=== PATIENT | female | born 1960 | race Caucasian/White ===

== ENCOUNTER → 2024-11-15 | Outpatient (CLI) | payer BC ==
[2024-11-15 10:24] VITALS: TEMP 98.3
[2024-11-15 11:49] VITALS: BP 118/80; O2SAT 98
== END ==
LOC: M WHCPRO 10:21
PROVIDERS: ATTEND Nurse Practitioner Family
DX: R92.8 Other abnormal and inconclusive findings on diagnostic imaging of breast (principal); N63.21 Unspecified lump in the left breast, upper outer quadrant; N60.12 Diffuse cystic mastopathy of left breast; D05.92 Unspecified type of carcinoma in situ of left breast

== ENCOUNTER → 2025-02-22 | Outpatient (RCR) | payer BC ==
[~2025-02-22] MED LIST: AMLO1TAB25 PO; ANAS1TAB2 PO; ATEN50TA2 PO; CITA20TA6 PO; OMEP40CA4 PO; PRAV40TA85 PO
== END ==
LOC: M ONCR 02-07 11:12
PROVIDERS: ATTEND General Practice
DX: Z51.0 Encounter for antineoplastic radiation therapy (principal); C50.112 Malignant neoplasm of central portion of left female breast

== ENCOUNTER 2025-03-16 10:36 | Outpatient (RCR) | payer BC | END 2025-03-25 | LOC: M ONCR 10:36 | PROVIDERS: ATTEND General Practice | DX: Z51.0 Encounter for antineoplastic radiation therapy (principal); C50.112 Malignant neoplasm of central portion of left female breast ==